=== PATIENT | female | born 1960 | race Caucasian/White ===

== ENCOUNTER 2017-09-12 10:17 | Emergency (ER) | payer BC ==
[~2017-09-12] VITALS: Ht 162.6 cm; Wt 70.5 kg
[2017-09-12] MEDS ORDERED: ketorolac trometh inj. 60 MG/2 ML VIAL IM ONE (10:45)
[2017-09-12 10:47] VITALS: BP 179/96
== END 2017-09-12 11:15 | disposition home or self-care (01) ==
LOC: ER 10:18
DX: I16.0 Hypertensive urgency (principal); Z88.8 Allergy status to other drugs, medicaments and biological substances; Z88.1 Allergy status to other antibiotic agents
CPT/HCPCS: 93005; 99283

== ENCOUNTER 2021-10-06 10:44 | Emergency (ER) | payer BC ==
[~2021-10-06] VITALS: Ht 162.6 cm; Wt 77.0 kg
[2021-10-06] MEDS ORDERED: cloNIDine 0.1 mg tablet PO ONE (16:00)
[2021-10-06] MEDS ORDERED: normal saline 1000ML IV soln IVB ONE (16:00)
[2021-10-06] MEDS ORDERED: dexamethasone sod phosphate 10mg/ml inj IV STA (16:12)
[2021-10-06] MEDS ORDERED: metoclopramide 5 mg/ml inj IV ONE (16:15)
[2021-10-06] MEDS ORDERED: LORazepam 2 mg/ml vial IV ONE (16:15)
[2021-10-06] MEDS ORDERED: ketorolac trometh. 30mg/ml inj. IV ONE (16:55)
[2021-10-06 16:58] LABS: BASOPHILS % (AUTO) 0.4 % (0-1); EOSINOPHILS % (AUTO) 0 % (0-6); HEMATOCRIT 42.7 % (35.0-45.0); HEMOGLOBIN 14.6 g/dl (12.0-16.0); LYMPHOCYTES # (AUTO) 1.2 X10'3 (1.1-4.8); LYMPHOCYTES % (AUTO) 12.9 % (21-51); MEAN CORPUSCULAR HGB CONC 34.3 g/dL (33.0-36.5); MEAN CORPUSCULAR VOLUME 96.4 FL (78-98); MEAN PLATELET VOLUME 7.9 FL (7.4-10.4); MONOCYTES # (AUTO) 0.5 X10'3 (0-0.9); MONOCYTES % (AUTO) 5.9 % (2-12); NEUTROPHILS # (AUTO) 7.4 X10'3 (1.8-7.7); NEUTROPHILS % (AUTO) 80.8 % (42-75); PLATELET COUNT 319 X10'3 (140-440); RED BLOOD COUNT 4.43 X10'6 (4.20-5.60); RED CELL DISTRIBUTION WIDTH 13.2 % (11.5-14.5); WHITE BLOOD COUNT 9.1 X10'3 (4.5-11.0)
[2021-10-06 17:07] LABS: ALANINE AMINOTRANSFERASE 36 U/L (12-78); ALBUMIN 4.1 G/DL (3.4-5.0); ALBUMIN/GLOBULIN RATIO 1.1 (1.1-1.5); ALKALINE PHOSPHATASE 81 IU/L (46-116); ANION GAP 12 (8-16); ASPARTATE AMINO TRANSFERASE 21 U/L (10-37); BILIRUBIN,TOTAL 0.5 MG/DL (0.1-1.0); BLOOD UREA NITROGEN 15 MG/DL (7-18); BUN/CREATININE RATIO 19.7 (6.6-38.0); CALCIUM 9.2 MG/DL (8.5-10.1); CHLORIDE 100 MMOL/L (99-107); CREATININE 0.76 MG/DL (0.40-0.90); GLUCOSE 123 MG/DL (70-104); SODIUM 136 MMOL/L (135-145); TOTAL CARBON DIOXIDE 24.3 MMOL/L (24-32); eGFR 77 ML/MIN
[2021-10-06 17:08] LABS: POTASSIUM 4.4 MMOL/L (3.5-5.1)
[2021-10-06] MEDS ORDERED: hydrALAZINE 20mg/ml inj. IV ONE (17:45)
[2021-10-06 17:53] VITALS: BP 160/77
[2021-10-06 18:23] LABS: PLATELET ESTIMATE NORMAL; TOTAL CELLS COUNTED 100
== END 2021-10-06 18:24 | disposition home or self-care (01) ==
LOC: ER 10:44
DX: G50.1 Atypical facial pain (principal); I10 Essential (primary) hypertension; Z88.1 Allergy status to other antibiotic agents; Z88.6 Allergy status to analgesic agent
CPT/HCPCS: 36415; 70450; 80053; 85007; 85025; 85651; 96361; 96374; 96375; 99284; J1100; J1885; J2060; J2765; J7030